=== PATIENT | female | born 2000 | race Caucasian/White ===

== ENCOUNTER 2021-03-17 08:44 | Emergency (ER) | payer SELFPAY ==
[~2021-03-17] VITALS: Ht 157.4 cm; Wt 37.8 kg
[2021-03-17 09:05] VITALS: BP 148/96
--- NOTE | 2021-03-17 09:08 | ED Integumentary General ---
General Chief Complaint: General Problems/Pain Stated Complaint: PAIN AND LUMPS IN BREASTS History of Present Illness Date Seen by Provider: Mar 17, 2021 Time Seen by Provider: 09:18 Initial Comments 20-year-old female presents with breast tenderness for the past 4 days. Pain and tenderness of both sides (symmetrical) without mass or skin change or nipple discharge. No previous history of breast problems. She has just under her menstrual cycle yesterday and it is a normal time. No concern of . She is a G1, P1 with a 4-year-old child. Allergies and Home Medications Allergies Coded Allergies: No Known Drug Allergies (Unverified , 03/17/21) Patient Home Medication List Home Medication List Reviewed: Yes Review of Systems Review of Systems Constitutional: No dizziness, No fever, No malaise, No weakness Respiratory: no symptoms reported Cardiovascular: no symptoms reported Gastrointestinal: no symptoms reported Musculoskeletal: no symptoms reported; No back pain, No joint pain, No muscle pain Skin: No change in color, No lesions; other (breast tenderness- both sides) Physical Exam Vital Signs Capillary Refill : General Appearance: WD/WN, no apparent distress Skin: normal color, warm/dry, other (breast exam deferred ( to PCP at follow up)) Progress/Results/Core Measures Results/Orders My Orders Orders - ISABELL OROPEZA DO Hcg,Qualitative Urine (03/17/21 09:10) Progress Progress Note : Progress Note Patient without any skin changes or concern of mass. Her symptoms are of hormonally related mastalgia. This was discussed and reassurance was given. Advise follow-up if not improving with her PCP when she returns home (visiting from out of town). She had read about "breast tenderness" through google search and became worried about breast CA Departure Impression Primary Impression: Mastalgia in female Disposition: 01 HOME, SELF-CARE Condition: Stable Departure-Patient Inst. Decision time for Depature: 09:22 Referrals: NO,LOCAL PHYSICIAN (PCP/Family) Primary Care Physician Patient Instructions: Mastalgia (DC) Add. Discharge Instructions: take 600 to 800mg of Ibuprofen 3 times daily as needed for breast pain See your doctor in 2 weeks for examination if not improving, sooner if worse All discharge instructions reviewed with patient and/or family. Voiced understanding. ISABELL OROPEZA DO Mar 17, 2021 09:08
== END 2021-03-17 09:23 | disposition home or self-care (01) ==
LOC: ER FS 08:48
DX: N64.4 Mastodynia (principal)
CPT/HCPCS: 84703; 99282

== ENCOUNTER 2021-03-19 20:17 | Emergency (ER) | payer SELFPAY | END 2021-03-19 20:25 | disposition left against medical advice (07) | LOC: EDUNIT# 20:17 → ER FS 20:18 | DX: T63.301A Toxic effect of unspecified spider venom, accidental (unintentional), initial encounter (principal) ==